=== PATIENT | male | born 1955 | race Caucasian/White ===

== ENCOUNTER → 2020-07-31 | Outpatient (CLI) | payer OTHER ==
[2016-02-27 08:04] VITALS: BP 150/92
[~2020-07-31] MED LIST: ASPI-482 PO; MULT-208 PO; OMEG500C PO; PRAV10TA2 PO; TAMS0.4C97 PO
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
--- NOTE | 2020-07-31 16:17 | KCIC ---
EXAMINATION: Magnetic resonance imaging (MRI) of the lumbar spine without contrast 07/31/2020 1:15 PM HISTORY: Lower back pain and bilateral anterior hip pain TECHNIQUE: Multiplanar multi-weighted MRI of the lumbar spine was performed without intravenous contr ast using the standard lumbar spine protocol. Contrast information: None administered. COMPARISON: None available. FINDINGS: There is 2 mm anterolisthesis of L3 on L4 and 2 mm retrolisthesis of L4 on L5. There is mild disc hei ght loss at L2-L3 and L5-S1 with endplate irregularity. Osseous hemangioma identified at L2. Modic ty pe I endplate degenerative changes are identified at L1-L2, L4-L5 and L5-S1. Conus medullaris termina kimberly at T12-L1. Distal spinal cord signal intensity is normal in all sequences. There is disc desiccat ion at all levels of the lumbar spine. Moderate anterior marginal osteophytosis. Schmorl's nodes are identified at L1 inferior endplate, L2 superior endplate, L4 inferior endplate and S1 superior endpla te without significant height loss. 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 T12-L1: Disc is normal in configuration. Mild facet arthropathy. No neuroforaminal or spinal canal st enosis. L1-L2: There is a mild circumferential disc bulge. Mild facet arthropathy ligamentum flavum infolding . Mild bilateral neuroforaminal stenosis, left greater than right. Mild spinal canal stenosis, exacer bated by congenital narrowing of the spinal canal. L2-L3: There is a circumferential disc bulge. There is mild facet arthropathy. Mild bilateral neural foraminal stenosis. Mild spinal canal stenosis. L3-L4: There is a circumferential disc bulge with central disc protrusion. Mild facet arthropathy. Mo derate bilateral neuroforaminal stenosis. Mild/moderate spinal canal stenosis, exacerbated by congeni connie narrowing of the spinal canal. L4-L5: There is a circumferential disc bulge with left far lateral disc protrusion. There is mild fac et arthropathy. Moderate to severe left and moderate right neuroforaminal stenosis. Is mild narrowing of the left lateral recess. Mild spinal canal stenosis. L5-S1: There is disc bulge with central disc protrusion. Mild facet arthropathy. No significant neuro foraminal or spinal canal stenosis. IMPRESSION: Mild to moderate degenerative changes of the lumbar spine as described in detail above. Findings are exacerbated by congenital narrowing of the spinal canal. Electronically signed by: Jayda Bolanos MD (07/31/2020 4:15 PM) [id number]
== END ==
LOC: KCIC MRI 12:47
PROVIDERS: ATTEND Family Medicine
DX: M47.815 Spondylosis without myelopathy or radiculopathy, thoracolumbar region (principal); M47.817 Spondylosis without myelopathy or radiculopathy, lumbosacral region
CPT/HCPCS: 72148; 73552

== ENCOUNTER → 2020-09-14 | Outpatient (CLI) | payer OTHER ==
[2016-02-27 08:04] VITALS: BP 150/92
[~2020-09-14] MED LIST changes: +CRESTOR40 MG PO; +HYDR-2145 PO; +LISI-130 PO; +SEMA0.25 SQ; +SOTA120T14 PO
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
== END | disposition home or self-care (01) ==
LOC: PNCL 08:53
PROVIDERS: ATTEND Anesthesiology
DX: M54.5 Low back pain (principal); M79.605 Pain in left leg; M79.604 Pain in right leg; I10 Essential (primary) hypertension; E11.9 Type 2 diabetes mellitus without complications; M19.90 Unspecified osteoarthritis, unspecified site; E66.9 Obesity, unspecified; E78.00 Pure hypercholesterolemia, unspecified; Z79.899 Other long term (current) drug therapy; Z98.890 Other specified postprocedural states; Z82.49 Family history of ischemic heart disease and other diseases of the circulatory system
CPT/HCPCS: 99214; G0463

== ENCOUNTER → 2020-10-03 | Outpatient (CLI) | payer OTHER ==
[2016-02-27 08:04] VITALS: BP 150/92
[~2020-10-03] MED LIST changes: +APIX5TAB PO; +CHOL5000 PO; +GLUC100018 PO; +IOHEXOL 180 MG/ML 10 ML VIAL. ONE; +UBID100T5 PO; +methylPREDNISolone ACETATE 40 MG/ML VIAL. ONE; +methylPREDNISolone ACETATE 80 MG/ML VIAL. ONE
--- NOTE | 2020-10-03 09:02 | PDOC ---
Progress Note - Pain Clinic Date of Service: DOS: DATE: 10/03/20 TIME: 08:58 Diagnosis: Dx: Lumbar radiculopathy with lumbar degenerative disc disease and lumbar spinal stenosis History or Present Illness: HPI: 65-year-old male returns for follow-up status post initial evaluation and preauthorization for lumbar epidural steroid injection. Patient is obtained that would like to proceed today. Patient reports still pain low back bilateral lower extremities mostly in the hips lateral thighs anterior thighs medial thighs with some myofascial soreness in the anterior thighs as well feeling sore and fatigue. Patient reported aching in the back dullness in the back shooting in the knees and legs cramping in the thighs as well patient reports radiating constant in both regions rated as an 8 on scale 10 is worse over the past week 6 at its average in 3 displeasing is a 6 today. Patient reports no new motor or sensory deficits no new bowel or bladder incontinence significant pain in the hips and the left knee especially with walking standing consistent with osteoarthritic pain patient's orthopedic surgeon deciding next course for patient's orthopedic pain depending on his response to today's treatment. Patient reports no new changes in concert complaints. Physical Exam: VS: Blood pressure is 116/76 pulse 66 respirations are 16 temperature 98.8 Fahrenheit weight is 291 pounds PE: PHYSICAL EXAMINATION: GENERAL: The patient is awake, alert, oriented, appropriate, very pleasant in demeanor HEENT: Shows normocephalic, atraumatic. Extraocular movements are intact and symmetrical. NECK: Shows anterior throat supple without palpable lymphadenopathy noted. Swallow reflex symmetrical. CHEST: Shows normal on inspection. Breath sounds are clear bilaterally. HEART: Shows S1, S2 clear. No murmurs auscultated. ABDOMEN: Soft, nontender, nondistended, obese. Well-healed surgical scar in the right lower quadrant is noted. No palpable organomegaly is noted. No rebound or guarding demonstrated. BACK: Shows spine grossly in the midline. Normal-appearing cervical lordotic curvature. There is slightly increased thoracic kyphosis, some minor flattening of the lumbar lordotic curvature. Lumbar paraspinous muscles show symmetrical on inspection, on palpation shows some moderate tenderness diffusely throughout the upper, middle and lower distribution of the paraspinous muscles, but without specific trigger points, without radiation of pain. The patient has good rotational motion of the lumbar spine, both laterally as well as extension and flexion without significant difficulty. EXTREMITIES: Lower extremities show deep tendon reflexes 2+ in the patellar and tendo calcaneus tendons. Motor exam is 5 on a scale of 5 with right dorsiflexion, extension, quadriceps and hamstring flexion and 5/5 on the left. Peripheral pulses are 1+ posterior tibial. No peripheral edema is noted bilaterally. Lower extremities are warm and dry to touch, equal in color and appearance. SKIN: Shows warm and dry, good turgor. No edema. No sores, rashes or bruising throughout. Procedure: Procedure: Options were discussed with the patient. Patient chart reviewed his current medication regimen updated current review of systems updated today as well. We will proceed with a lumbar epidural steroid injection today with fluoroscopic guidance. Risks were discussed including but not limited to: Bleeding, infection, possibility of epidural hematoma and subsequent neurological compromise, dural puncture, headaches, spinal cord and/or nerve damage, side effects of steroid medication, and poor results regarding pain control. Patient understands and wished to proceed. Patient return to the clinic in approximate 2 weeks for follow-up, was counseled as return appointment activity level and side effects beware. Patient restart his Eliquis tomorrow October 04, 2020. Medication Injected: Med Injected: Procedure is lumbar epidural steroid injection under local anesthetic using sterile prep and drape at the L4-5 level using C-arm fluoroscopic guidance in both AP and lateral views medications injected is 120 mg Depo-Medrol +10mL preservative-free normal saline and 2 mL contrast- condition at discharge is stable patient tolerated procedure well had no complications. Condition at Discharge: Condition at Discharge: Condition at discharge stable, patient alert the procedure well and had no complications. CHRISTI REICH MD Oct 03, 2020 09:02
--- NOTE | 2020-10-03 09:02 | PDOC4 ---
Procedure Note: Procedure Note: Patient was consented for lumbar epidural steroid injection. Risks were discussed including but not limited to: Bleeding, infection, possibility of epidural hematoma and subsequent neurological compromise, dural puncture, headaches, spinal cord and/or nerve damage, side effects of steroid medication, and poor results regarding pain control. Patient understands and wished to proceed. Procedure is lumbar epidural steroid injection under local anesthetic using sterile prep and drape at the L4 5 level using C-arm fluoroscopic guidance in both AP and lateral views medications injected is 120 mg Depo-Medrol +10mL preservative-free normal saline and 2 mL contrast- condition at discharge is stable patient tolerated procedure well had no complications. CHRISTI REICH MD Oct 03, 2020 09:02
== END | disposition home or self-care (01) ==
LOC: PNCL 08:22
PROVIDERS: ATTEND Anesthesiology
DX: M51.16 Intervertebral disc disorders with radiculopathy, lumbar region (principal); M48.061 Spinal stenosis, lumbar region without neurogenic claudication; I10 Essential (primary) hypertension; E78.00 Pure hypercholesterolemia, unspecified; G47.30 Sleep apnea, unspecified; E66.9 Obesity, unspecified; M19.90 Unspecified osteoarthritis, unspecified site; Z79.899 Other long term (current) drug therapy; Z98.890 Other specified postprocedural states
CPT/HCPCS: 62323; J1030; J1040; Q9965

== ENCOUNTER → 2020-10-17 | Outpatient (CLI) | payer OTHER ==
[2016-02-27 08:04] VITALS: BP 150/92
[~2020-10-17] MED LIST changes: +LISI20TA18 PO
--- NOTE | 2020-10-17 09:18 | PDOC ---
Progress Note - Pain Clinic Date of Service: DOS: DATE: 10/17/20 TIME: 09:14 Diagnosis: Dx: Lumbar radiculopathy with lumbar degenerative disease and lumbar spinal stenosis History or Present Illness: HPI: 65-year-old male returns for follow-up status post lumbar epidural steroid injection x1. Patient reports about 80% improvement after the first injection first 3 days with near 100% improvement now the pain is returning still about 75% overall reduction pain in the low back and the right greater than left hip. Patient reports still some pain in her low back rating the right and and left hips into the lateral thighs anterior thighs medial thighs again worse on the right side but present bilaterally patient reports pain is aching sharp dull shooting dull in the back and hips more sharp in the hip joints left knee is shooting and radiating across the back patient reports his thighs and low back is significantly improved after the last injection. Patient reports a 7 on scale 10 is worse over the past week 3 on average 1 its least is a 1 today. Patient reports only noticeable with extended walking standing changing positions better with sitting or laying down generally wakes him from sleep only once a night now patient reports he was sleeping much better after last injection doing greater distance walking doing household activities work activities travel with greater ease and comfort as well. Patient reports only new changes now taking Aleve [id number] 250 mg twice daily which she reports does help but only to a moderate extent. Patient reports no new motor or sensory deficits no bowel or bladder incontinence or other complaints at this time. Physical Exam: VS: Blood pressure is 115/71 pulse 67 respirations 20 temperature 98.0 F weight is 289 pounds PE: PHYSICAL EXAMINATION: GENERAL: The patient is awake, alert, oriented, appropriate, very pleasant in demeanor HEENT: Shows normocephalic, atraumatic. Extraocular movements are intact and symmetrical. NECK: Shows anterior throat supple without palpable lymphadenopathy noted. Swallow reflex symmetrical. CHEST: Shows normal on inspection. Breath sounds are clear bilaterally. HEART: Shows S1, S2 clear. No murmurs auscultated. ABDOMEN: Soft, nontender, nondistended, obese. BACK: Shows spine grossly in the midline. Normal-appearing cervical lordotic curvature. There is slightly increased thoracic kyphosis, some minor flattening of the lumbar lordotic curvature. Lumbar paraspinous muscles show symmetrical on inspection, on palpation shows some moderate tenderness diffusely throughout the upper, middle and lower distribution of the paraspinous muscles, but without specific trigger points, without radiation of pain. The patient has good rotational motion of the lumbar spine, both laterally as well as extension and flexion without significant difficulty. No tenderness over the spinous processe s, sacrum or sacroiliac regions. EXTREMITIES: Lower extremities show deep tendon reflexes 2+ in the patellar and tendo calcaneus tendons. Motor exam is 5 on a scale of 5 with right dorsiflexion, extension, quadriceps and hamstring flexion and 5/5 on the left. Peripheral pulses are 1+ posterior tibial. No peripheral edema is noted bilaterally. Lower extremities are warm and dry to touch, equal in color and appearance. SKIN: Shows warm and dry, good turgor. No edema. No sores, rashes or bruising throughout. Procedure: Procedure: Options discussed with patient. Patient's old chart reviewed his current medication regimen updated current review of systems updated today as well. We will proceed with a second in the series lumbar epidural steroid injection today with fluoroscopic guidance. Risks were discussed including but not limited to: Bleeding, infection, possibility of epidural hematoma and subsequent neurological compromise, dural puncture, headaches, spinal cord and/or nerve damage, side effects of steroid medication, and poor results regarding pain control. Patient understands and wished to proceed. Patient return to clinic in approximate 2 weeks for follow-up, was counseled as to return appointment activity level and side effects to be aware of. Medication Injected: Med Injected: Procedure is lumbar epidural steroid injection under local anesthetic using sterile prep and drape at the L4-5 level using C-arm fluoroscopic guidance in both AP and lateral views medications injected is 120 mg Depo-Medrol +10mL preservative-free normal saline and 2 mL contrast- condition at discharge is stable patient tolerated procedure well had no complications. Condition at Discharge: Condition at Discharge: Condition at discharge is stable, patient already procedure well and had no complications. CHRISTI REICH MD Oct 17, 2020 09:18
--- NOTE | 2020-10-17 09:19 | PDOC4 ---
Procedure Note: ICD 10 Code: ICD 10 Code: M 54.16 M 48.07 M 51.36 Procedure Note: Patient was consented for lumbar epidural steroid injection. Risks were discussed including but not limited to: Bleeding, infection, possibility of epidural hematoma and subsequent neurological compromise, dural puncture, headaches, spinal cord and/or nerve damage, side effects of steroid medication, and poor results regarding pain control. Patient understands and wished to proceed. Procedure is lumbar epidural steroid injection under local anesthetic using sterile prep and drape at the L4-5 level using C-arm fluoroscopic guidance in both AP and lateral views medications injected is 120 mg Depo-Medrol +10mL pre servative-free normal saline and 2 mL contrast- condition at discharge is stable patient tolerated procedure well had no complications. CHRISTI REICH MD Oct 17, 2020 09:19
== END | disposition home or self-care (01) ==
LOC: PNCL 08:29
PROVIDERS: ATTEND Anesthesiology
DX: M51.16 Intervertebral disc disorders with radiculopathy, lumbar region (principal); M48.061 Spinal stenosis, lumbar region without neurogenic claudication; I10 Essential (primary) hypertension; E78.00 Pure hypercholesterolemia, unspecified; E66.9 Obesity, unspecified; M19.90 Unspecified osteoarthritis, unspecified site; G47.30 Sleep apnea, unspecified; Z79.899 Other long term (current) drug therapy; Z98.890 Other specified postprocedural states
CPT/HCPCS: 62323; J1030; J1040; Q9965

== ENCOUNTER → 2020-11-08 | Outpatient (CLI) | payer OTHER ==
[2016-02-27 08:04] VITALS: BP 150/92
[~2020-11-08] MED LIST changes: +BUPIVACAINE MPF 0.25% 10 ML VIAL. ONE
--- NOTE | 2020-11-08 08:57 | PDOC ---
Progress Note - Pain Clinic Date of Service: DOS: DATE: 11/08/20 TIME: 08:54 Diagnosis: Dx: Lumbar to colopathy with lumbar degenerative disease lumbar spinal stenosis Bilateral hip joint pain with osteoarthritis History or Present Illness: HPI: 65-year-old male returns in follow-up status post lumbar epidural steroid injection x2. Patient reports doing much better about 60% improvement in the lo w back and bilateral lower extremity pain still some burning pain in the anterior thighs right equal to left but much better increase activity greater distance walking doing household activities work activities travel with greater ease and comfort patient reports since about a 7 on scale 10 is worst over the past week for an average 3 its least is a 3 today patient ports aching sharp shooting cramping and radiating but his chief complaint is bilateral hip joint pain he has been working with his orthopedic surgeon and considering PRP therapy however his orthopedic surgeon is sending him back today for intra-articular steroid injection. Patient reports worse pain with walking put all his weight on his left or right leg depending on which leg is using special climbing stairs or steps significant pain radiating to the groin bilaterally left side greater than the right. Reports no new motor or sensory deficits no bowel or bladder incontinence. Physical Exam: VS: Blood pressure is 105/71 pulse 81 respirations 18 temperature 98.1 F height is 5 foot 11 inches, weight is 288 pounds PE: PHYSICAL EXAMINATION: GENERAL: The patient is awake, alert, oriented, appropriate, very pleasant in demeanor HEENT: Shows normocephalic, atraumatic. Extraocular movements are intact and symmetrical. Oral cavity: Mucous membranes moist and pink. Dentition is intact. NECK: Shows anterior throat supple without palpable lymphadenopathy noted. Swallow reflex symmetrical. CHEST: Shows normal on inspection. Breath sounds are clear bilaterally, no rales rhonchi wheezes auscultated. HEART: Shows S1, S2 clear. No murmurs auscultated. ABDOMEN: Soft, nontender, nondistended, obese. No palpable organomegaly is noted BACK: Shows spine grossly in the midline. Normal-appearing cervical lordotic curvature. There is slightly increased thoracic kyphosis, some minor flattening of the lumbar lordotic curvature. Lumbar paraspinous muscles show symmetrical on inspection, on palpation shows some moderate tenderness diffusely throughout the upper, middle and lower distribution of the paraspinous muscles without specific trigger points, without radiation of pain. The patient has good rotational motion of the lumbar spine, both laterally as well as extension and flexion without significant difficulty. No tenderness over the spinous processes, sacrum or sacroiliac regions. EXTREMITIES: Lower extremities show deep tendon reflexes 2+ in the patellar and tendo calcaneus tendons. Motor exam is 5 on a scale of 5 with right dorsiflexion, extension, quadriceps and hamstring flexion and 5/5 on the left. Peripheral pulses are 1+ posterior tibial. No peripheral edema is noted bilaterally. Lower extremities are warm and dry to touch, equal in color and appearance. Patient has positive Santana's maneuver bilaterally worse on the left with external rotation and posterior displacement of the hips present bilaterally. SKIN: Shows warm and dry, good turgor. No edema. No sores, rashes or bruising throughout. Procedure: Procedure: Options discussed with patient. Patient chart reviewed his current medication regimen updated current review of systems updated today as well. We will proceed with a left intra-articular hip joint injection today with fluoroscopic guidance. Risk were discussed including but not limited to bleeding infection possibility of intravascular injection sequelae spread local anesthetic numbness side effects steroid medications post arthroscopy and portals regarding pain control. Patient understands wished to proceed. Patient will return to the clinic in approximately 1 week for follow-up, was counseled as return appointment activity and side effects to be aware of. Medication Injected: Med Injected: Under sterile prep and drape patient in supine position patient's left hip was visualized using C-arm fluoroscopic guidance. Using 1% lidocaine area lateral to the hip joint was anesthetized and using direct fluoroscopic vision 22-gauge 5 inch Quincke needle with stylette was then advanced under direct fluoroscopic guidance into the left intra-articular hip joint. 3 cc of contrast was used to show good spread within the hip joint itself and without washout or uptake. At this time, 3 cc 0.25% bupivacaine and 80 mg Depo-Medrol was then injected into the hip joint. Needle was withdrawn and sterile bandage was applied. Patient tolerated procedure well and had no complications. Condition at Discharge: Condition at Discharge: Condition at discharge stable, patient already procedure well and had no complications. CHRISTI REICH MD Nov 08, 2020 08:57
--- NOTE | 2020-11-08 08:58 | PDOC4 ---
Procedure Note: ICD 10 Code: ICD 10 Code: M2 5.552 M16.12 Procedure Note: Patient was consented for left intra-articular hip joint injection with fluoroscopic guidance. Risk discussed including but not limited to bleeding infection possibility of intravascular injection sequelae spread of local anesthetic numbness side effects steroid medication exposure fluoroscopy and poor results regarding pain control. Patient understands wished to proceed. Under sterile prep and drape patient in supine position patient's left hip was visualized using C-arm fluoroscopic guidance. Using 1% lidocaine area lateral to the hip joint was anesthetized and using direct fluoroscopic vision 22-gauge 5 inch Quincke needle with stylette was then advanced under direct fluoroscopic guidance into the left intra-articular hip joint. 3 cc of contrast was used to show good spread within the hip joint itself and without washout or uptake. At this time, 3 cc 0.25% bupivacaine and 80 mg Depo-Medrol was then injected into the hip joint. Needle was withdrawn and sterile bandage was applied. Patient tolerated procedure well and had no complications. CHRISTI REICH MD Nov 08, 2020 08:58
== END ==
LOC: PNCL 08:20
PROVIDERS: ATTEND Anesthesiology
DX: M16.12 Unilateral primary osteoarthritis, left hip (principal); M25.552 Pain in left hip; I10 Essential (primary) hypertension; E78.00 Pure hypercholesterolemia, unspecified; E66.9 Obesity, unspecified; M19.90 Unspecified osteoarthritis, unspecified site; Z98.890 Other specified postprocedural states
CPT/HCPCS: 20610; 77002; J1030; J1040; J3490; Q9965

== ENCOUNTER → 2020-11-23 | Outpatient (CLI) | payer OTHER ==
[2016-02-27 08:04] VITALS: BP 150/92
[~2020-11-23] MED LIST changes: -methylPREDNISolone ACETATE 40 MG/ML VIAL. ONE
--- NOTE | 2020-11-23 08:50 | PDOC ---
Progress Note - Pain Clinic Date of Service: DOS: DATE: 11/23/20 TIME: 08:46 Diagnosis: Dx: Lumbar radiculopathy with lumbar degenerative disease lumbar spinal stenosis Bilateral hip joint pain with primary osteoarthritis History or Present Illness: HPI: 65-year-old male returns for follow-up status post lumbar epidural steroid injections as well as left intra-articular hip joint injection with excellent results patient reports approximate 9% improvement initially now but still about 70% improvement on the left side his right side was quite painful with similar symptoms very tender with walking standing climbing hills putting all his weight on his right leg such as climbing on a step or a stair with pain rating to the right groin as well we had obtained authorization for right intra-articular hip joint injection and patient returns now reporting still significant pain in the right hip posterior as well as lateral anterior groin with walking and standing patient reports is a 4 on scale 10 is worse over the past week to an average 1 at its least is a 2 today patient was aching shooting to the groin radiating can be constant with walking standing weightbearing. Patient reports he has less soreness in his thighs now but otherwise doing fairly well. Patient reports no new motor or sensory deficits. Physical Exam: VS: Blood pressure is 102/70 pulse 76 respirations 18 temperature 98.5 F height is 5 foot,1 1 inches weight is 258 pounds PE: PHYSICAL EXAMINATION: GENERAL: The patient is awake, alert, oriented, appropriate, very pleasant in demeanor. HEENT: Shows normocephalic, atraumatic. Extraocular movements are intact and symmetrical. Oral cavity: Mucous membranes moist and pink. Dentition is intact. NECK: Shows anterior throat supple without palpable lymphadenopathy noted. Swallow reflex symmetrical. CHEST: Shows normal on inspection. Breath sounds are clear bilaterally, no rales or. HEART: Shows S1, S2 clear. No murmurs auscultated. ABDOMEN: Soft, nontender, nondistended, obese. No palpable organomegaly is noted. BACK: Shows spine grossly in the midline. Normal-appearing cervical lordotic curvature. There is slightly increased thoracic kyphosis, some minor flattening of the lumbar lordotic curvature. Lumbar paraspinous muscles show symmetrical on inspection, on palpation shows some moderate tenderness diffusely throughout the upper, middle and lower distribution of the paraspinous muscles without specific trigger points, without radiation of pain. The patient has good rotational motion of the lumbar spine, both laterally as well as extension and flexion without significant difficulty. EXTREMITIES: Lower extremities show deep tendon reflexes 2+ in the patellar and tendo calcaneus tendons. Motor exam is 5 on a scale of 5 with right dorsiflexion, extension, quadriceps and hamstring flexion and 5/5 on the left. Peripheral pulses are 1 posterior tibial. No peripheral edema is noted bilaterally. Lower extremities are warm and dry to touch, equal in color and appearance. Santana's maneuver is noted to be positive once again on the right side only with posterior displacement and external rotation of the right hip. SKIN: Shows warm and dry, good turgor. No edema. No sores, rashes or bruising throughout. Procedure: Procedure: Options discussed with patient. Patient's old chart was reviewed his current medication regimen updated current review of systems updated today as well. We will proceed with a right intra-articular hip injection today with fluoroscopic guidance. Risk were discussed including but not limited to bleeding infection possible intravascular injection sequelae spread local anesthetic and numbness sterilization spoke with breast-feeding for results regarding pain control. Patient understands wished to proceed. Patient will return to the clinic approximately 4 weeks for follow-up, was counseled as return appointment activity level and side effects to be aware of. Medication Injected: Med Injected: Under sterile prep and drape patient in supine position patient's right hip was visualized using C-arm fluoroscopic guidance. Using 1% lidocaine area lateral to the hip joint was anesthetized and using direct fluoroscopic vision 22-gauge 5 inch Quincke needle with stylette was then advanced under direct fluoroscopic guidance into the right intra-articular hip joint. 3 cc of contrast was used to show good spread within the hip joint itself and without washout or uptake. At this time, 3 cc 0.25% bupivacaine and 80 mg Depo-Medrol was then injected into the hip joint. Needle was withdrawn and sterile bandage was applied. Patient tolerated procedure well and had no complications. Condition at Discharge: Condition at Discharge: Condition at discharge stable, patient already the procedure well and had no complications. CHRISTI REICH MD Nov 23, 2020 08:50
--- NOTE | 2020-11-23 08:56 | PDOC4 ---
Procedure Note: ICD 10 Code: ICD 10 Code: M2 5.551 M1 6.11 Procedure Note: Patient was consented for right intra-articular hip joint injection with fluoroscopic guidance. Risk were discussed including not limited to bleeding infection possibility of intravascular injection sequelae spread of local anesthetic numbness side effects steroid medication exposure fluoroscopy and poor results regarding pain control. Patient understands wished to proceed. Under sterile prep and drape patient in supine position patient's right hip was visualized using C-arm fluoroscopic guidance. Using 1% lidocaine area lateral to the hip joint was anesthetized and using direct fluoroscopic vision 22-gauge 5 inch Quincke needle with stylette was then advanced under direct fluoroscopic guidance into the right intra-articular hip joint. 3 cc of contrast was used to show good spread within the hip joint itself and without washout or uptake. At this time, 3 cc 0.25% bupivacaine and 80 mg Depo-Medrol was then injected into the hip joint. Needle was withdrawn and sterile bandage was applied. Patient tolerated procedure well and had no complications. CHRISTI REICH MD Nov 23, 2020 08:56
== END | disposition home or self-care (01) ==
LOC: PNCL 08:13
PROVIDERS: ATTEND Anesthesiology
DX: M16.0 Bilateral primary osteoarthritis of hip (principal); M51.16 Intervertebral disc disorders with radiculopathy, lumbar region; M48.061 Spinal stenosis, lumbar region without neurogenic claudication; I10 Essential (primary) hypertension; E78.00 Pure hypercholesterolemia, unspecified; G47.30 Sleep apnea, unspecified; E66.9 Obesity, unspecified; M19.90 Unspecified osteoarthritis, unspecified site; Z79.899 Other long term (current) drug therapy; Z98.890 Other specified postprocedural states
CPT/HCPCS: 20610; 77002; J1040; J3490; Q9965

== ENCOUNTER → 2021-02-18 | Outpatient (CLI) | payer OTHER ==
[2016-02-27 08:04] VITALS: BP 150/92
[~2021-02-18] MED LIST changes: -BUPIVACAINE MPF 0.25% 10 ML VIAL. ONE; -IOHEXOL 180 MG/ML 10 ML VIAL. ONE; -methylPREDNISolone ACETATE 80 MG/ML VIAL. ONE
--- NOTE | 2021-02-18 09:25 | PDOC ---
Progress Note - Pain Clinic Date of Service: DOS: DATE: 02/18/21 TIME: 09:20 Diagnosis: Dx: Lumbar radiculopathy lumbar degenerative disease lumbar spinal stenosis Bilateral hip joint pain with osteoarthritis History or Present Illness: HPI: 65-year-old male returns for follow-up last seen November 23, 2020 patient had a right intra-articular hip joint injection with very good results patient reports is lasting very well but his main complaint is now low back pain radiating to bilateral lower extremities posterior gluteus posterior lateral thigh low anterior thigh anteromedial thighs more on the right side patient reports is been going on now for about a month or 2 initially was doing much better though after his last injections with his hips distance walking doing house activities work activities sleeping much better still sleeping 6 to 7 hours a night without disturbance patient reports is an 8 on scale 10 is worse over the past week 6 on average 3 days least is a 3 today described as aching in the back sharp in the back shooting in the legs can be some stabbing pain in the back and the legs radiating in the legs can be constant on and off in intensity in the back as well. Patient continues with stretching strength exercises on his own as well as walking daily. Patient reports no bowel or bladder incontinence. Physical Exam: VS: Blood pressure is 109/70 pulse 68 respirations 18 temperature 98.1 F height is 5 foot 11 inches weight is 286 pounds PE: PHYSICAL EXAMINATION: GENERAL: The patient is awake, alert, oriented, appropriate, very pleasant in demeanor HEENT: Shows normocephalic, atraumatic. Extraocular movements are intact and symmetrical. Oral cavity: Mucous membranes moist and pink. Dentition is intact. NECK: Shows anterior throat supple without palpable lymphadenopathy noted. Swallow reflex symmetrical. CHEST: Shows normal on inspection. Breath sounds are clear bilaterally, no rales or rhonchi. HEART: Shows S1, S2 clear. No murmurs auscultated. ABDOMEN: Soft, nontender, nondistended. No palpable organomegaly is noted. BACK: Shows spine grossly in the midline. Normal-appearing cervical lordotic curvature. There is slightly increased thoracic kyphosis, some flattening of the lumbar lordotic curvature. Lumbar paraspinous muscles show symmetrical on inspection, on palpation shows some moderate tenderness diffusely throughout the upper, middle and lower distribution of the paraspinous muscles, but without specific trigger points, without radiation of pain. The patient has good rotational motion of the lumbar spine, both laterally as well as extension and flexion without significant difficulty. EXTREMITIES: Lower extremities show deep tendon reflexes 2+ in the patellar and tendo calcaneus tendons. Motor exam is 5 on a scale of 5 with right dorsiflexion, extension, quadriceps and hamstring flexion and 5/5 on the left. Peripheral pulses are 1+ posterior tibial. No peripheral edema is noted bilaterally. Lower extremities are warm and dry to touch, equal in color and appearance. SKIN: Shows warm and dry, good turgor. No edema. No sores, rashes or bruising throughout. Procedure: Procedure: Options were discussed with patient. Patient chart was reviewed as his current medication regimen updated current review of systems updated today as well. We will preauthorize patient for lumbar epidural steroid injection he has significant radicular pain in the right L4-5 dermatomal distribution. Once approved, patient will return for translaminar approach L4-5 level lumbar epidural steroid injection with fluoroscopic guidance. Medication Injected: Med Injected: None Condition at Discharge: Condition at Discharge: Condition at discharge is stable. CHRISTI REICH MD Feb 18, 2021 09:25
== END | disposition home or self-care (01) ==
LOC: PNCL 08:22
PROVIDERS: ATTEND Anesthesiology
DX: M51.16 Intervertebral disc disorders with radiculopathy, lumbar region (principal); M48.061 Spinal stenosis, lumbar region without neurogenic claudication; M25.551 Pain in right hip; M25.552 Pain in left hip; M16.0 Bilateral primary osteoarthritis of hip; I10 Essential (primary) hypertension; E78.00 Pure hypercholesterolemia, unspecified; G47.30 Sleep apnea, unspecified; E66.09 Other obesity due to excess calories; Z98.890 Other specified postprocedural states; Z79.899 Other long term (current) drug therapy; Z90.49 Acquired absence of other specified parts of digestive tract
CPT/HCPCS: 99212; G0463

== ENCOUNTER → 2021-02-27 | Outpatient (CLI) | payer OTHER ==
[2016-02-27 08:04] VITALS: BP 150/92
[~2021-02-27] MED LIST changes: +IOHEXOL 180 MG/ML 10 ML VIAL. ONE; +methylPREDNISolone ACETATE 40 MG/ML VIAL. ONE; +methylPREDNISolone ACETATE 80 MG/ML VIAL. ONE
--- NOTE | 2021-02-27 09:13 | PDOC ---
Progress Note - Pain Clinic Date of Service: DOS: DATE: 02/27/21 TIME: 09:10 Diagnosis: Dx: Lumbar radiculopathy with lumbar degenerative disease and lumbar spinal stenosis Bilateral hip joint pain with osteoarthritis History or Present Illness: HPI: 65-year-old male returns for follow-up status post lumbar epidural steroid injection with very good results about 75% improvement after his last injection pain returning now in the low back and right greater than left lower extremity patient had new pain in the upper right flank over the past 1 to 2 weeks is reported without any specific injury or accident but it feels like a "kidney pain" on the upper aspect of the low back on the right side patient reports that is aching on and off in intensity does not seem to correlate with the low back pain significantly but is also not excruciating patient reports the pain is in the low back bilateral lower extremities posterior gluteus lateral thigh anterior thigh medial thigh medial lower legs and across the low back as well patient rates his pain as 8 on scale 10 is worse over the past week for an average 3 its least is a 4 today patient reports is aching and sharp can be stabbing in the upper right aspect of the low back radiating the legs on and off in intensity in the upper back as well. Patient reports better with sitting or laying down worse with walking standing changing positions although after his last injection she did much better with all his activities and he still sleeping fairly well at night but does awaken from sleep about once a night. Patient reports no bowel or bladder incontinence. Physical Exam: VS: Blood pressure is 131/82 pulse 83 respirations 18 temperature 98.3 F height 5 feet 11 inches weight is 288 pounds PE: PHYSICAL EXAMINATION: GENERAL: The patient is awake, alert, oriented, appropriate, very pleasant in demeanor HEENT: Shows normocephalic, atraumatic. Extraocular movements are intact and symmetrical. Oral cavity: Mucous membranes moist and pink. Dentition is intact. NECK: Shows anterior throat supple without palpable lymphadenopathy noted. Swallow reflex symmetrical. CHEST: Shows normal on inspection. Breath sounds are clear bilaterally, no rales or rhonchi. HEART: Shows S1, S2 clear. No murmurs auscultated. ABDOMEN: Soft, nontender, nondistended, obese. No palpable organomegaly is noted. BACK: Shows spine grossly in the midline. Normal-appearing cervical lordotic curvature. There is slightly increased thoracic kyphosis, some minor flattening of the lumbar lordotic curvature. Lumbar paraspinous muscles show symmetrical on inspection, on palpation shows some moderate tenderness diffusely throughout the upper, middle and lower distribution of the paraspinous muscles without specific trigger points, without radiation of pain. Right posterior flank shows some moderate tenderness with palpation only very diffusely and only very mildly with palpation without any asymmetry compared to the left. The patient has good rotational motion of the lumbar spine, both laterally as well as extension and flexion without significant difficulty. No tenderness over the spinous processes, sacrum or sacroiliac regions. EXTREMITIES: Lower extremities show deep tendon reflexes 2+ in the patellar and tendo calcaneus tendons. Motor exam is 5 on a scale of 5 with right dorsiflexion, extension, quadriceps and hamstring flexion and 5/5 on the left. Peripheral pulses are 1+ posterior tibial. No peripheral edema is noted bilaterally. Lower extremities are warm and dry to touch, equal in color and appearance. SKIN: Shows warm and dry, good turgor. No edema. No sores, rashes or bruising throughout. Procedure: Procedure: Options were discussed with patient. Patient chart reviewed his current medication regimen updated current review of systems updated today as well. We will proceed with a lumbar epidural steroid injection today with fluoroscopic guidance. Risks were discussed including but not limited to: Bleeding, infection, possibility of epidural hematoma and subsequent neurological compromise, dural puncture, headaches, spinal cord and/or nerve damage, side ef fects of steroid medication, and poor results regarding pain control. Patient understands and wished to proceed. Patient will return to the clinic in approximately 2 weeks for follow-up, was counseled as to return appointment, activity level, and side effect to be aware of. Medication Injected: Med Injected: Procedure is lumbar epidural steroid injection under local anesthetic using sterile prep and drape at the L4-5 level using C-arm fluoroscopic guidance in both AP and lateral views medications injected is 120 mg Depo-Medrol +10mL preservative-free normal saline and 2 mL contrast- condition at discharge is stable patient tolerated procedure well had no complications. Condition at Discharge: Condition at Discharge: Condition at discharge stable, paced tolerated procedure well and had no complications. CHRISTI REICH MD Feb 27, 2021 09:13
--- NOTE | 2021-02-27 09:14 | PDOC4 ---
Procedure Note: ICD 10 Code: ICD 10 Code: M54.16 M4 8.06 M51.36 Procedure Note: Patient was consented for lumbar epidural steroid injection with fluoroscopic guidance. Risks were discussed including but not limited to: Bleeding, infection, possibility of epidural hematoma and subsequent neurological compromise, dural puncture, headaches, spinal cord and/or nerve damage, side effects of steroid medication, and poor results regarding pain control. Patient understands and wished to proceed. Procedure is lumbar epidural steroid injection under local anesthetic using charo rile prep and drape at the L4-5 level using C-arm fluoroscopic guidance in both AP and lateral views medications injected is 120 mg Depo-Medrol +10mL preservative-free normal saline and 2 mL contrast- condition at discharge is stable patient tolerated procedure well had no complications. CHRISTI REICH MD Feb 27, 2021 09:14
== END | disposition home or self-care (01) ==
LOC: PNCL 08:21
PROVIDERS: ATTEND Anesthesiology
DX: M51.16 Intervertebral disc disorders with radiculopathy, lumbar region (principal); M48.061 Spinal stenosis, lumbar region without neurogenic claudication; M16.0 Bilateral primary osteoarthritis of hip; I10 Essential (primary) hypertension; E78.00 Pure hypercholesterolemia, unspecified; G47.30 Sleep apnea, unspecified; E66.9 Obesity, unspecified; Z79.899 Other long term (current) drug therapy; Z98.890 Other specified postprocedural states
CPT/HCPCS: 62323; J1030; J1040; Q9965

== ENCOUNTER → 2021-03-18 | Outpatient (CLI) | payer OTHER ==
[2016-02-27 08:04] VITALS: BP 150/92
[~2021-03-18] MED LIST changes: +BUPIVACAINE MPF 0.25% 10 ML VIAL. ONE; -methylPREDNISolone ACETATE 40 MG/ML VIAL. ONE
--- NOTE | 2021-03-18 09:07 | PDOC ---
Progress Note - Pain Clinic Date of Service: DOS: DATE: 03/18/21 TIME: 09:03 Diagnosis: Dx: Lumbar radiculopathy with lumbar degenerative disc disease and lumbar spinal stenosis Bilateral hip joint pain with osteoarthritis History or Present Illness: HPI: 65-year-old male returns for follow-up status post lumbar epidural steroid injection on February 27 patient did very well about 50% improvement with the low back pain however his hip pain has been coming more noticeable specially on the right side of both hips very painful with walking weightbearing standing all of his weight on 1 leg or the other with groin pain radiating medially somewhat worse on the right than left present bilaterally patient reports a 7 on scale 10 is worse over the past week 5 on average to its least is a 5 today patient reports is worse with putting all his weight on 1 leg such as climbing stairs or steps walking uphill and standing. Patient reports on the right side is worse the left side is equally painful at times patient reports is aching sharp shooting can be radiating into the groin as well bilaterally. Patient reports no loss of motor function no bowel or bladder incontinence. Physical Exam: VS: Blood pressure is 126/75 pulse 62 respirations 18 temperature 98.4 F weight is 284 pounds PE: PHYSICAL EXAMINATION: GENERAL: The patient is awake, alert, oriented, appropriate, very pleasant in demeanor HEENT: Shows normocephalic, atraumatic. Extraocular movements are intact and symmetrical. Patient wearing eyeglasses. Oral cavity: Mucous membranes moist and pink. Dentition is intact. NECK: Shows anterior throat supple without palpable lymphadenopathy noted. Swallow reflex symmetrical. CHEST: Shows normal on inspection. Breath sounds are clear bilaterally. HEART: Shows S1, S2 clear. No murmurs auscultated. ABDOMEN: Soft, nontender, nondistended. No palpable organomegaly is noted. BACK: Shows spine grossly in the midline. Normal-appearing cervical lordotic curvature. There is slightly increased thoracic kyphosis, some flattening of the lumbar lordotic curvature. Lumbar paraspinous muscles show symmetrical on inspection, on palpation shows some moderate tenderness diffusely throughout the upper, middle and lower distribution of the paraspinous muscles, but without specific trigger points, without radiation of pain. The patient has good rotational motion of the lumbar spine, both laterally as well as extension and flexion without significant difficulty. No tenderness over the spinous pro cesses, sacrum or sacroiliac regions. EXTREMITIES: Lower extremities show deep tendon reflexes 2+ in the patellar and tendo calcaneus tendons. Motor exam is 5 on a scale of 5 with right dorsiflexion, extension, quadriceps and hamstring flexion and 5/5 on the left. Peripheral pulses are 1+ posterior tibial. No peripheral edema is noted bilaterally. Lower extremities are warm and dry. Patient has bilateral positive Santana's maneuvers external rotation of the hips and posterior displacement more painful on the right than the left but present and positive bilaterally. SKIN: Shows warm and dry, good turgor. No edema. No sores, rashes or bruising throughout. Procedure: Procedure: Options discussed with patient. Patient chart was used with current medication regimen updated current review of systems updated today as well. We will proceed with bilateral intra-articular hip joint injections today with fluoroscopic guidance. Risks were discussed including but not limited to b leeding infection possibility of intravascular injection sequelae spread local anesthetic numbness side effects steroid medication exposure fluoroscopy and poor results regarding pain control. Patient understands wished to proceed. Patient return to clinic in approximately 1 month for follow-up, was counseled as to return appointment, activity level, and side effects to be aware of. Medication Injected: Med Injected: Under sterile prep and drape patient in supine position patient's bilateral hips were visualized using C-arm fluoroscopic guidance. Using 1% lidocaine area lateral to the hip joint was anesthetized and using direct fluoroscopic vision 22-gauge 5 inch Quincke needle with stylette was then advanced under direct fluoroscopic guidance into the left, then right intra-articular hip joint. 2 cc of contrast, each, was used to show good spread within the hip joint itself and without washout or uptake. At this time, 3 cc 0.25% bupivacaine and 80 mg Depo- Medrol, each side, was then injected into the hip joint. Needle was withdrawn and sterile bandage was applied. Patient tolerated procedure well and had no complications. Condition at Discharge: Condition at Discharge: Condition at discharge stable, patient tolerated the procedure well and had no complications. CHRISTI REICH MD Mar 18, 2021 09:07
--- NOTE | 2021-03-18 09:08 | PDOC4 ---
Procedure Note: ICD 10 Code: ICD 10 Code: M2 5.553 M16.13 Procedure Note: Patient was consented for bilateral intra-articular hip joint injections with fluoroscopic guidance. Risk discussed including but limited to bleeding infection possibility of intravascular injection sequelae spread of local anesthetic numbness side effects of steroid medication exposure fluoroscopy and poor results regarding pain control. Patient understands wished to proceed. Under sterile prep and drape patient in supine position patient's bilateral hips were visualized using C-arm fluoroscopic guidance. Using 1% lidocaine area lateral to the hip joint was anesthetized and using direct fluoroscopic vision 22-gauge 5 inch Quincke needle with stylette was then advanced under direct fluoroscopic guidance into the left, then right intra-articular hip joint. 2 cc of contrast, each, was used to show good spread within the hip joint itself and without washout or uptake. At this time, 3 cc 0.25% bupivacaine and 80 mg Depo- Medrol, each side, was then injected into the hip joint. Needle was withdrawn and sterile bandage was applied. Patient tolerated procedure well and had no complications. CHRISTI REICH MD Mar 18, 2021 09:08
== END | disposition home or self-care (01) ==
LOC: PNCL 08:17
PROVIDERS: ATTEND Anesthesiology
DX: M16.0 Bilateral primary osteoarthritis of hip (principal); M51.16 Intervertebral disc disorders with radiculopathy, lumbar region; M48.061 Spinal stenosis, lumbar region without neurogenic claudication; I10 Essential (primary) hypertension; E78.00 Pure hypercholesterolemia, unspecified; G47.30 Sleep apnea, unspecified; E66.9 Obesity, unspecified; Z79.899 Other long term (current) drug therapy; Z98.890 Other specified postprocedural states
CPT/HCPCS: 20610; 77002; J1040; J3490; Q9965

== ENCOUNTER → 2021-07-04 | Outpatient (CLI) | payer MEDICARE, OTHER ==
[2016-02-27 08:04] VITALS: BP 150/92
[~2021-07-04] MED LIST changes: +DEXAMETHASONE PRES.FREE 10 MG/ML VIAL. ONE; -methylPREDNISolone ACETATE 80 MG/ML VIAL. ONE
--- NOTE | 2021-07-04 08:44 | PDOC ---
Progress Note - Pain Clinic Date of Service: DOS: DATE: 07/04/21 TIME: 08:40 Diagnosis: Dx: Lumbar radiculopathy with lumbar degenerative disease and lumbar spinal stenosis Bilateral hip joint pain with osteoarthritis History or Present Illness: HPI: 66-year-old male returns for follow-up status post lumbar epidural steroid injection February 27 and bilateral hip joint injection March 18, 2021 patient reports he did very well with each of these about a percent improvement for the past few months pain beginning to return now in the low back as well as into the bilateral hips and lower extremities patient reports pain is worse in the hips at this point more on the right than the left with some pain into the groin bilaterally with walking standing and weightbearing patient reports is much better with sitting or resting generally does not awaken from sleep at night also pain across the back but his chief complaint today is bilateral hip pain patient reports aching and sharp can be shooting in the anterior thighs and in the groins especially on the right patient which is radiating constant with weightbearing standing putting all his weight on 1 leg or the other essentially equal right and left slightly more on the right noticeably with the groin more painful on the right side. Patient reports no bowel or bladder incontinence rates his pain is 8 on scale 10 is worse over the past week 5 on average 3 to Sl easman is a 5 today patient ports aching sharp shooting can be constant radiating across the low back as well but the hips are much more noticeable with standing and walking. Patient reports no bowel or bladder incontinence. Physical Exam: VS: Blood pressure is 165/71 pulse 60 respirations are 18 temperature is 90.3 F height is 5 feet 11 inches weight 274 pounds. PE: PHYSICAL EXAMINATION: GENERAL: The patient is awake, alert, oriented, appropriate, very pleasant in demeanor HEENT: Shows normocephalic, atraumatic. Extraocular movements are intact and symmetrical. Patient wearing eyeglasses. Oral cavity: Mucous membranes moist and pink. Dentition is intact. NECK: Shows anterior throat supple without palpable lymphadenopathy noted. Swallow reflex symmetrical. CHEST: Shows normal on inspection. Breath sounds are clear bilaterally, no rales rhonchi wheezes auscultated. HEART: Shows S1, S2 clear. No murmurs auscultated. ABDOMEN: Soft, nontender, nondistended. No palpable organomegaly is noted. BACK: Shows spine grossly in the midline. Normal-appearing cervical lordotic curvature. There is slightly increased thoracic kyphosis, some mild flattening of the lumbar lordotic curvature. Lumbar paraspinous muscles show symmetrical on inspection, on palpation shows some moderate tenderness diffusely throughout the upper, middle and lower distribution of the paraspinous muscles without specific trigger points, without radiation of pain. The patient has good rotational motion of the lumbar spine, both laterally as well as extension and flexion without significant difficulty. No tenderness over the spinous processes, sacrum or sacroiliac regions. EXTREMITIES: Lower extremities show deep tendon reflexes 2+ in the patellar and tendo calcaneus tendons. Motor exam is 5 on a scale of 5 with right dorsiflexion, extension, quadriceps and hamstring flexion and 5/5 on the left. Peripheral pulses are 1+ posterior tibial. No peripheral edema is noted bilaterally. Lower extremities are warm and dry. Patient has positive Santana's maneuver bilaterally slightly more tender with external rotation and posterior displacement on the right than the left but present bilaterally. SKIN: Shows warm and dry, good turgor. No edema. No sores, rashes or bruising throughout. Procedure: Procedure: Options discussed with patient. Patient's old chart was reviewed as his current medication regimen updated current review of systems updated today as well. We will proceed with bilateral intra-articular hip joint injections today with fluoroscopic guidance. Risks were discussed including but not limited to bleeding infection possibility of intravascular injection sequelae spread of local anesthetic and numbness side effects steroid medication and poor results regarding pain control as well as exposure to fluoroscopy. Patient understands wished to proceed. Patient will return to clinic in approximately 2 weeks for follow-up, was counseled as to return appointment, activity level, and side effects to be aware of. Medication Injected: Med Injected: Under sterile prep and drape patient in supine position patient's bilateral hips were visualized using C-arm fluoroscopic guidance. Using 1% lidocaine area lateral to each hip joint was anesthetized and using direct fluoroscopic vision 22-gauge 5 inch Quincke needle with stylette was then advanced under direct fluoroscopic guidance into the left intra-articular hip joint. 3 cc of contrast each side, was used to show good spread within the hip joint itself and without washout or uptake. At this time, 3 cc 0.25% bupivacaine and 10 mg dexamethasone, each hip, was then injected into the hip joint. Needle was withdrawn and sterile bandages were applied. Patient tolerated procedure well and had no complications. Condition at Discharge: Condition at Discharge: Condition at discharge stable, paced tolerated procedure well and had no complications. CHRISTI REICH MD Jul 04, 2021 08:44
--- NOTE | 2021-07-04 08:45 | PDOC4 ---
Procedure Note: ICD 10 Code: ICD 10 Code: M2 5.553 M16.13 Procedure Note: Patient was consented for bilateral intra-articular hip joint injections with fluoroscopic guidance. Risk were discussed including but not limited to bleeding infection possibility of intravascular injection sequelae spread of local anesthetic numbness side effects steroid medication exposure fluoroscopy and poor results regarding pain control. Patient understands and wished to proceed. Under sterile prep and drape patient in supine position patient's bilateral hips were visualized using C-arm fluoroscopic guidance. Using 1% lidocaine area lateral to each hip joint was anesthetized and using direct fluoroscopic vision 22-gauge 5 inch Quincke needle with stylette was then advanced under direct fluoroscopic guidance into the left intra-articular hip joint. 3 cc of contrast each side, was used to show good spread within the hip joint itself and without washout or uptake. At this time, 3 cc 0.25% bupivacaine and 10 mg dexamethasone, each hip, was then injected into the hip joint. Needle was with drawn and sterile bandages were applied. Patient tolerated procedure well and had no complications. CHRISTI REICH MD Jul 04, 2021 08:45
== END | disposition home or self-care (01) ==
LOC: PNCL 07:47
PROVIDERS: ATTEND Anesthesiology
DX: M16.0 Bilateral primary osteoarthritis of hip (principal); M51.16 Intervertebral disc disorders with radiculopathy, lumbar region; M48.061 Spinal stenosis, lumbar region without neurogenic claudication; I10 Essential (primary) hypertension; E78.00 Pure hypercholesterolemia, unspecified; G47.30 Sleep apnea, unspecified; E66.9 Obesity, unspecified; Z79.899 Other long term (current) drug therapy; Z98.890 Other specified postprocedural states
CPT/HCPCS: 20610; 77002; J1100; J3490; Q9965

== ENCOUNTER → 2021-07-11 | Outpatient (CLI) | payer MEDICARE, OTHER ==
[2016-02-27 08:04] VITALS: BP 150/92
[~2021-07-11] MED LIST changes: -BUPIVACAINE MPF 0.25% 10 ML VIAL. ONE; -DEXAMETHASONE PRES.FREE 10 MG/ML VIAL. ONE; +methylPREDNISolone ACETATE 40 MG/ML VIAL. ONE; +methylPREDNISolone ACETATE 80 MG/ML VIAL. ONE
--- NOTE | 2021-07-11 09:39 | PDOC ---
Progress Note - Pain Clinic Date of Service: DOS: DATE: 07/11/21 TIME: 09:36 Diagnosis: Dx: Lumbar radiculopathy with lumbar degenerative disease and lumbar spinal stenosis Bilateral hip joint pain with osteoarthritis History or Present Illness: HPI: 66-year-old male returns for follow-up status post bilateral intra-articular hip joint injections with very good results approximately 75% improvement overall patient reports still some pain in the hips himself but much improved walking with greater ease and comfort sleeping better at night patient reports chief complaint today is low back pain into the bilateral aspect of the low back radiating to the lateral thighs and anterior thighs to the knees but not the groin patient reports that is worse with walking standing changing positions better with sitting or laying down wakes him from sleep about once or twice a night at the most patient reports pain is a 7 on scale 10 is worse over the past week 5 on average 3 its least and is a 5 today patient describes aching across the low back and shooting into the lower extremities traveling and radiating can be constant with walking standing or prolonged standing in 1 position without moving. Patient reports no bowel or bladder incontinence no loss of motor function but significant fatigability of both lower extremities with extended standing or walking more than 20 to 30 minutes. Physical Exam: VS: Blood pressure is 110/61 pulse 63 respirations 18 temperature 97.8 F weight is 275 pounds. PE: PHYSICAL EXAMINATION: GENERAL: The patient is awake, alert, oriented, appropriate, very pleasant in demeanor HEENT: Shows normocephalic, atraumatic. Extraocular movements are intact and symmetrical. Patient wearing eyeglasses. Oral cavity: Mucous membranes moist and pink. Dentition is intact. NECK: Shows anterior throat supple without palpable lymphadenopathy noted. Swallow reflex symmetrical. CHEST: Shows normal on inspection. Breath sounds are clear bilaterally, no rales or rhonchi auscultated. HEART: Shows S1, S2 clear. No murmurs auscultated. ABDOMEN: Soft, nontender, nondistended. No palpable organomegaly is noted. BACK: Shows spine grossly in the midline. Normal-appearing cervical lordotic curvature. There is slightly increased thoracic kyphosis, some minor flattening of the lumbar lordotic curvature. Lumbar paraspinous muscles show symmetrical on inspection, on palpation shows some moderate tenderness diffusely throughout the upper, middle and lower distribution of the paraspinous muscles, but without specific trigger points, without radiation of pain. The patient has good rotational motion of the lumbar spine, both laterally as well as extension and flexion without significant difficulty. EXTREMITIES: Lower extremities show deep tendon reflexes 2+ in the patellar and tendo calcaneus tendons. Motor exam is 5 on a scale of 5 with right dorsiflexion, extension, quadriceps and hamstring flexion and 5/5 on the left. Peripheral pulses are 1+_ posterior tibial. No peripheral edema is noted bilaterally. Lower extremities are warm and dry to touch, equal in color and appearance. SKIN: Shows warm and dry, good turgor. No edema. No sores, rashes or bruising throughout. Procedure: Procedure: Options discussed with the patient. Patient's old chart was reviewed his current medication regimen updated current review of systems updated today as well. We will proceed with a lumbar epidural steroid injection today with fluoroscopic guidance. Risks were discussed including but not limited to: Bleeding, infection, possibility of epidural hematoma and subsequent neurological compromise, dural puncture, headaches, spinal cord and/or nerve damage, side effects of steroid medication, and poor results regarding pain control. Patient understands and wished to proceed. Patient return to the clinic in approximately 2 weeks for follow-up, was counseled as to return appointment, activity, and side effects to be aware of. Medication Injected: Med Injected: Procedure is lumbar epidural steroid injection under local anesthetic using sterile prep and drape at the L4-5 level using C-arm fluoroscopic guidance in both AP and lateral views medications injected is 120 mg methylprednisolone +10mL preservative-free normal saline and 2 mL contrast- condition at discharge is stable patient tolerated procedure well had no complications. Condition at Discharge: Condition at Discharge: Condition at discharge stable, patient alert the procedure well and had no complications. CHRISTI REICH MD Jul 11, 2021 09:39
--- NOTE | 2021-07-11 09:39 | PDOC4 ---
Procedure Note: ICD 10 Code: ICD 10 Code: M54.16 M51.36 M48.06 Procedure Note: Patient was consented for lumbar epidural steroid injection with fluoroscopic guidance. Risks were discussed including but not limited to: Bleeding, infection, possibility of epidural hematoma and subsequent neurological compromise, dural puncture, headaches, spinal cord and/or nerve damage, side effects of steroid medication, and poor results regarding pain control. Patient understands and wished to proceed. Procedure is lumbar epidural steroid injection under local anesthetic using ster ile prep and drape at the L4-5 level using C-arm fluoroscopic guidance in both AP and lateral views medications injected is 120 mg methylprednisolone +10mL preservative-free normal saline and 2 mL contrast- condition at discharge is stable patient tolerated procedure well had no complications. CHRISTI REICH MD Jul 11, 2021 09:39
== END | disposition home or self-care (01) ==
LOC: PNCL 07:55
PROVIDERS: ATTEND Anesthesiology
DX: M51.16 Intervertebral disc disorders with radiculopathy, lumbar region (principal); M48.061 Spinal stenosis, lumbar region without neurogenic claudication; M17.0 Bilateral primary osteoarthritis of knee; I10 Essential (primary) hypertension; E78.00 Pure hypercholesterolemia, unspecified; G47.30 Sleep apnea, unspecified; E66.9 Obesity, unspecified; Z79.899 Other long term (current) drug therapy; Z98.890 Other specified postprocedural states
CPT/HCPCS: 62323; J1030; J1040; Q9965